=== PATIENT | male | born 1950 | race African-American/Black ===

== ENCOUNTER 2022-01-28 20:28 | Inpatient (IN) | payer MEDICARE, MEDICAID ==
[~2022-01-28] VITALS: Ht 167.6 cm; Wt 77.1 kg
[2022-01-28] MEDS ORDERED: SODIUM CHLORIDE 0.9% 1,000 ML IV ONE (21:45)
[2022-01-28 23:45] LABS: HEMATOCRIT. 40.8 % (42.0-52.0); HEMOGLOBIN. 13.3 g/dL (14.0-18.0); MEAN CORPUSCULAR HEMOGLOBIN 28.1 pg (28.0-32.0); MEAN PLATELET VOLUME 8.1 fl (7.4-10.4); PLATELET 193 x1000/uL (130-400); RED BLOOD CELL COUNT 4.74 mill/uL (4.7-6.1); RED CELL DISTRIBUTION WIDTH 25.4 % (11.6-14.6)
[2022-01-29 00:11] LABS: CHLORIDE 103 mEq/L (98-107)
[2022-01-29 02:07] LABS: PLATELET ESTIMATE NORMAL
[2022-01-29 12:00] VITALS: BP 158/96
[2022-01-29] MEDS ORDERED: ACETAMINOPHEN 325MG TABLET PO PRN (13:15)
[2022-01-29] MEDS ORDERED: ONDANSETRON HCL 4MG/2ML INJ IV PRN (13:15)
[2022-01-29 15:49] VITALS: BP 158/96
[2022-01-29 16:00] VITALS: BP 189/109
[2022-01-29] MEDS ORDERED: INFLUENZA VACCINE 05/PF 0.5 ML SYRINGE IM ONE (17:30)
[2022-01-29] MEDS ORDERED: PNEUMOCOCCAL 23-VAL P-SAC VAC 0.5 ML IM ONE (17:30)
[2022-01-29] MEDS: DILTIAZEM HCL 30MG TABLET PO SCH ×2 (18:35→23:11)
[2022-01-29 20:00] VITALS: BP 142/73
[2022-01-29] MEDS: ATORVASTATIN CALCIUM 20MG TABLET PO SCH (22:19)
[2022-01-29] MEDS: METOPROLOL TARTRATE 25MG TABLET PO SCH ×2 (22:20→22:27)
[2022-01-29] MEDS: LATANOPROST 0.005% OPHTH DROPS 2.5ML BOTHEYE SCH (23:12)
[2022-01-30] VITALS: BP 140/78
[2022-01-30] MEDS ORDERED: CEFTRIAXONE 1 G PREMIX 50 ML IV SCH (01:15)
[2022-01-30 04:00] VITALS: BP 151/87
[2022-01-30 07:16] LABS: HEMATOCRIT. 39.1 % (42.0-52.0); HEMOGLOBIN. 13.2 g/dL (14.0-18.0); MEAN CORPUSCULAR HEMOGLOBIN 28.6 pg (28.0-32.0); MEAN CORPUSCULAR VOLUME 85.1 fL (80.0-94.0); MEAN PLATELET VOLUME 8.7 fl (7.4-10.4); PLATELET 198 x1000/uL (130-400); RED CELL DISTRIBUTION WIDTH 25.1 % (11.6-14.6)
[2022-01-30] MEDS: CEFTRIAXONE 1,000 MG in DEXTROSE 5% WATER 50 ML IV SCH (07:46)
[2022-01-30] MEDS: DILTIAZEM HCL 30MG TABLET PO SCH (07:47)
[2022-01-30] MEDS: LEVOTHYROXINE SODIUM 75MCG TABLET PO SCH (07:48)
[2022-01-30 08:00] VITALS: BP 156/86
[2022-01-30 08:35] LABS: CHLORIDE 102 mEq/L (98-107)
[2022-01-30] MEDS: METOPROLOL TARTRATE 25MG TABLET PO SCH ×2 (08:57→21:21)
[2022-01-30] MEDS: LISINOPRIL 20MG TABLET PO SCH (08:57)
[2022-01-30] MEDS: CLOPIDOGREL 75MG TABLET PO SCH (08:57)
[2022-01-30] MEDS ORDERED: FUROSEMIDE 40MG TABLET PO NR (09:30)
[2022-01-30 10:04] LABS: PLATELET ESTIMATE NORMAL
[2022-01-30 12:00] VITALS: BP 151/86
[2022-01-30 16:00] VITALS: BP 144/89
[2022-01-30 20:11] VITALS: BP 117/83
[2022-01-30 21:12] LABS: CLARITY URINE CLEAR (CLEAR); COLOR URINE YELLOW (YELLOW); KETONES URINE TRACE (NEGATIVE); LEUKOCYTE ESTERASE URINE NEGATIVE (NEGATIVE); NITRITE URINE NEGATIVE (NEGATIVE); OCCULT BLOOD URINE 1+ (NEGATIVE); PH URINE 5.5 (4.5-8.0); PROTEIN URINE 2+ (NEGATIVE); SPECIFIC GRAVITY URINE 1.013 (1.005-1.030)
[2022-01-30] MEDS: ATORVASTATIN CALCIUM 20MG TABLET PO SCH (21:20)
[2022-01-30] MEDS: LATANOPROST 0.005% OPHTH DROPS 2.5ML BOTHEYE SCH (22:55)
[2022-01-31] VITALS: BP 116/84
[2022-01-31] MEDS: CEFTRIAXONE 1,000 MG in DEXTROSE 5% WATER 50 ML IV SCH (01:42)
[2022-01-31 04:00] VITALS: BP 144/87
[2022-01-31] MEDS: LEVOTHYROXINE SODIUM 75MCG TABLET PO SCH (06:44)
[2022-01-31 08:00] VITALS: BP 156/86
[2022-01-31] MEDS ORDERED: METOPROLOL SUCCINATE 50MG ER TABLET PO SCH (09:00)
[2022-01-31] MEDS: CLOPIDOGREL 75MG TABLET PO SCH (09:59)
[2022-01-31] MEDS: APIXABAN 5 MG TABLET PO SCH ×2 (09:59→17:36)
[2022-01-31] MEDS: LISINOPRIL 20MG TABLET PO SCH (09:59)
[2022-01-31 12:00] VITALS: BP 151/86
[2022-01-31 16:00] VITALS: BP 144/89
[2022-01-31 20:00] VITALS: BP 131/69
[2022-01-31] MEDS: ATORVASTATIN CALCIUM 20MG TABLET PO SCH (21:07)
[2022-01-31] MEDS: LATANOPROST 0.005% OPHTH DROPS 2.5ML BOTHEYE SCH (21:08)
[2022-02-01 00:02] VITALS: BP 135/81
[2022-02-01] MEDS: CEFTRIAXONE 1,000 MG in DEXTROSE 5% WATER 50 ML IV SCH (01:40)
[2022-02-01 04:03] VITALS: BP 136/92
[2022-02-01] MEDS: LEVOTHYROXINE SODIUM 75MCG TABLET PO SCH (06:38)
[2022-02-01] MEDS ORDERED: PANTOPRAZOLE 40MG DR TABLET PO SCH (07:20)
[2022-02-01 08:00] VITALS: BP 131/88
[2022-02-01] MEDS ORDERED: FUROSEMIDE 40MG TABLET PO SCH (09:30)
[2022-02-01] MEDS: APIXABAN 5 MG TABLET PO SCH (09:54)
[2022-02-01] MEDS: LISINOPRIL 20MG TABLET PO SCH (09:54)
[2022-02-01] MEDS: CLOPIDOGREL 75MG TABLET PO SCH (09:54)
[2022-02-01] MEDS ORDERED: METOPROLOL SUCCINATE 50MG ER TABLET PO SCH (10:00)
[2022-02-01 12:00] VITALS: BP 130/81
[2022-02-01 12:48] LABS: BASOPHILS % 0.2 % (0.0-2.0); EOSINOPHILS % 0.9 % (0.0-5.0); HEMATOCRIT. 38.6 % (42.0-52.0); HEMOGLOBIN. 12.8 g/dL (14.0-18.0); MEAN CORPUSCULAR HEMOGLOBIN 28.5 pg (28.0-32.0); MEAN CORPUSCULAR VOLUME 86.1 fL (80.0-94.0); MEAN PLATELET VOLUME 8.4 fl (7.4-10.4); MONOCYTES % 12.7 % (2.0-8.0); NEUTROPHILS % 74.2 % (40.0-76.0); PLATELET 191 x1000/uL (130-400); RED BLOOD CELL COUNT 4.48 mill/uL (4.7-6.1); RED CELL DISTRIBUTION WIDTH 23.6 % (11.6-14.6)
[2022-02-01 13:01] LABS: CHLORIDE 101 mEq/L (98-107)
[2022-02-01 13:53] LABS: PLATELET ESTIMATE NORMAL
[2022-02-01 15:37] VITALS: BP 130/81
[2022-02-12] MEDS ORDERED: LEVO75TA7 PO (10:15)
[2022-02-12] MEDS ORDERED: LISI20TA31 PO (10:15)
[2022-02-12] MEDS ORDERED: XALAO BOTHEYE (10:15)
[2022-02-12] MEDS ORDERED: FURO40TA5 PO (10:15)
[2022-02-12] MEDS ORDERED: ATOR20TA PO (10:15)
[2022-02-12] MEDS ORDERED: APIX5TAB PO (10:15)
[2022-02-12] MEDS ORDERED: CLOP75TA15 PO (10:15)
[2022-02-12] MEDS ORDERED: METO-385 PO (10:15)
== END 2022-02-01 16:38 | DRG 64 ==
LOC: ER 20:28 → EDSEX 20:28 → 6WST 01-29 02:24 → EDBEDREQTM 01-29 02:28 → EDBEDREQ 01-29 02:28 → 6WST 01-29 23:00
PROVIDERS: ADMIT Internal Medicine; ATTEND Internal Medicine
DX: I63.9 Cerebral infarction, unspecified (principal); I50.41 Acute combined systolic (congestive) and diastolic (congestive) heart failure; E44.1 Mild protein-calorie malnutrition; I48.91 Unspecified atrial fibrillation; G90.8 Other disorders of autonomic nervous system; I25.10 Atherosclerotic heart disease of native coronary artery without angina pectoris; I25.5 Ischemic cardiomyopathy; I11.0 Hypertensive heart disease with heart failure; Z68.27 Body mass index [BMI] 27.0-27.9, adult; Z98.61 Coronary angioplasty status
CPT/HCPCS: 36415; 70551; 71045; 74176; 80048; 80053; 81003; 83735; 83880; 84484; 85025; 90732; 93005; 93306; 93880; 93923; 93970; 97116; 97162; 97530; 99285; J0696; J7030; J7060